=== PATIENT | female | born 1995 | race Caucasian/White ===

== ENCOUNTER 2023-10-09 12:38 | Emergency (ER) | payer MEDICAID ==
[~2023-10-09] VITALS: Ht 172.7 cm; Wt 73.0 kg
[2023-10-09 12:41] VITALS: O2SAT 98
[2023-10-09 14:58] VITALS: BP 118/72; PULSE 78; RESP 18; TEMP 98.7
== END 2023-10-09 15:01 | disposition home or self-care (01) ==
LOC: ER 12:38
DX: S70.12XA Contusion of left thigh, initial encounter (principal); S70.11XA Contusion of right thigh, initial encounter; Y04.0XXA Assault by unarmed brawl or fight, initial encounter; Y93.89 Activity, other specified; Y92.89 Other specified places as the place of occurrence of the external cause; Y99.8 Other external cause status
CPT/HCPCS: 81025; 99283

== ENCOUNTER 2024-07-12 22:22 | Emergency (ER) | payer MEDICAID, OTHER ==
[~2024-07-12] VITALS: Ht 162.6 cm; Wt 59.0 kg
[2024-07-12 22:26] VITALS: BP 130/80; PULSE 99; RESP 18; TEMP 37; O2SAT 98
[2024-07-13] MEDS ORDERED: TETANUS, DIPHTHERIA, PERTUSSIS VAC/PF 0.5ML (>10YR OLD) IM ONE
[2024-07-13] MEDS ORDERED: IBUP-2029 MT (01:28)
[2024-07-13] MEDS ORDERED: BO1 TP (01:28)
== END 2024-07-13 03:06 | disposition home or self-care (01) ==
LOC: ER 22:36
DX: S02.5XXA Fracture of tooth (traumatic), initial encounter for closed fracture (principal); S80.212A Abrasion, left knee, initial encounter; Y04.0XXA Assault by unarmed brawl or fight, initial encounter; Y93.89 Activity, other specified; Y92.89 Other specified places as the place of occurrence of the external cause; Y99.8 Other external cause status
CPT/HCPCS: 70486; 73560; 81025; 90715; 99284